=== PATIENT | male | born 1975 ===

== ENCOUNTER 2024-06-15 02:32 | Outpatient (CLI) | payer OTHER, SELFPAY ==
[2024-06-15] MEDS: Levalbuterol HFA 15 GM INH 4 PUFF IH (11:38)
[2024-06-15] MEDS: Inhaler, Assist Device 1 EACH MC (11:38)
--- NOTE | 2024-06-28 10:21 | W.PFT ---
Date of service: 06/15/24 Time of Service: 10:00 Pulmonary Function Test Result Indications: Disability Interpretation Spirometry: No airflow limitation. No significant bronchodilator response. Impression Normal spirometry Clinical Correlation therefore is recommended.
== END 2024-06-15 02:33 | disposition home or self-care (01) ==
LOC: RT 02:33
PROVIDERS: Visit Provider Student in an Organized Health Care Education/Training Program
DX: J45.909 Unspecified asthma, uncomplicated (principal)
CPT/HCPCS: 94060